=== PATIENT | female | born 1960 | race Caucasian/White ===

== ENCOUNTER 2025-02-09 05:27 | Outpatient (REF) | payer MEDICARE, SELFPAY ==
[2025-02-09 05:34] LABS: MANUAL DIFF FLAG NO
--- OUTSIDE RECORDS SUMMARY | 2025-02-09 05:34 | XMS_ITS ---
Author Name [facility] Organization Unknown Care Team Organization Name Specialty Phone Email Start Date End Da te [facility] ACO 01/17/[address] [facility] AMELIA YAO Primary Care 02/04/202320[address] [facility] JENNIFER YEPEZ Primary Care 11/06/2022 01/17/[address] [facility] Annalise, PROVIDER Primary Care 04/07/202212/29
[2025-02-09 05:42] LABS: Hematocrit 25.3 % (37.0-47.0); Hemoglobin 7.8 g/dl (12.0-16.0); Imm Gran Abs Auto 0.01 X10*3/uL (0.00-0.03); Imm Gran Pct Auto 0.2 % (0.0-0.4); Lymphocytes Absolute Auto 1.1 X10*3/uL (1.2-4.9); Mean Corpuscular HGB Conc 30.8 g/dl (31.0-35.0); Mean Corpuscular Hemoglobin 27.4 pg (27.0-33.0); Mean Corpuscular Volume 88.8 fL (80.0-98.0); NRBC Abs Auto 0.000 X10*3/uL (0.0-0.012); NRBC Pct Auto 0.0 /100WBC (0.0-0.2); Platelet Count 365 X10*3/uL (160-400); Red Blood Count 2.85 X10*6/uL (4.20-5.50); White Blood Count 5.0 X10*3/uL (4.8-10.8)
[2025-02-09 06:08] LABS: Alanine Aminotransferase 15 U/L (0-31); Albumin Level 2.2 g/dL (3.5-5.0); Alkaline Phosphatase 265 U/L (39-117); Anion Gap 9 (12-20); Aspartate Amino Transferase 37 U/L (5-31); Blood Urea Nitrogen 4 mg/dL (9-16); Calcium 7.6 mg/dL (8.4-10.2); Carbon Dioxide 28 mmol/L (22-29); Chloride 109 mmol/L (96-108); Estimated Glomerular Filt Rate > 60; Potassium 4.3 mmol/L (3.3-5.1); Sodium 142 mmol/L (135-145); Total Protein 4.8 g/dL (6.5-8.0)
[2025-02-09 07:30] LABS: Hemoglobin A1C 54.6289 umol/L; Total Hemoglobin (HGBA1C) 2147.1334 umol/L
== END 2025-02-09 05:28 | disposition home or self-care (01) ==
LOC: HO.MMNH2L 05:27
PROVIDERS: Visit Provider Student in an Organized Health Care Education/Training Program
DX: L03.115 Cellulitis of right lower limb (principal); Z13.1 Encounter for screening for diabetes mellitus
CPT/HCPCS: 36415; 80053; 83036; 85025